=== PATIENT | male | born 1935 | race Caucasian/White ===

== ENCOUNTER 2022-01-23 13:24 | Inpatient (IN) | payer MEDICAID, OTHER ==
[~2022-01-23] VITALS: Ht 193 cm; Wt 63.1 kg
[2022-01-23] MEDS ORDERED: SODIUM CHLORIDE 0.9% 1,000 ML IV ONE (14:30)
[2022-01-23 14:40] LABS: BASOPHILS % 0.3 % (0.0-2.0); EOSINOPHILS % 0.6 % (0.0-5.0); HEMATOCRIT. 36.3 % (42.0-52.0); LYMPHOCYTES % 14.1 % (20.0-50.0); MEAN CORPUSCULAR HEMOGLOBIN 28.2 pg (28.0-32.0); MEAN CORPUSCULAR VOLUME 84.8 fL (80.0-94.0); MEAN PLATELET VOLUME 8.2 fl (7.4-10.4); PLATELET 143 x1000/uL (130-400); RED BLOOD CELL COUNT 4.27 mill/uL (4.7-6.1); RED CELL DISTRIBUTION WIDTH 16.7 % (11.6-14.6)
[2022-01-23 14:59] LABS: CHLORIDE 103 mEq/L (98-107)
[2022-01-23] MEDS ORDERED: CLONIDINE 0.2MG TABLET PO ONE (15:45)
[2022-01-23] MEDS ORDERED: NITROGLYCERIN 50MG PREMIX 250 ML IV ONE (17:00)
[2022-01-23] MEDS ORDERED: ENOXAPARIN 40MG/0.4ML SYR SUBCUT SCH (17:30)
[2022-01-23] MEDS ORDERED: ACETAMINOPHEN 325MG TABLET PO PRN ×2 (17:30)
[2022-01-23] MEDS ORDERED: GUAIFENESIN 200MG/10ML SUGAR FREE UDC PO PRN (17:30)
[2022-01-23] MEDS ORDERED: MAGNESIUM/ALUMINUM HYDROXIDE/SIMETHICONE 30ML UDC PO PRN (17:30)
[2022-01-23] MEDS ORDERED: HYDROCODONE/ACETAMINOPHEN 5/325MG TABLET PO PRN (17:30)
[2022-01-23] MEDS ORDERED: ONDANSETRON HCL 4MG/2ML INJ IV PRN (17:30)
[2022-01-23] MEDS ORDERED: NITROGLYCERIN 50MG PREMIX 250 ML IV PRN (17:45)
[2022-01-23] MEDS ORDERED: NALOXONE HCL 0.4MG/ML VIAL IV PRN (18:00)
[2022-01-23] MEDS: ENOXAPARIN 30MG/0.3ML SYR SUBCUT SCH (21:19)
[2022-01-24] VITALS (47 sets, daily range): BP systolic 89–202; BP diastolic 29–136
[2022-01-24] MEDS: CLONIDINE 0.1MG TABLET PO PRN ×2 (03:05→17:09)
[2022-01-24] MEDS: NITROGLYCERIN 50MG PREMIX 250 ML IV PRN ×2 (04:31→17:22)
[2022-01-24] MEDS: HYDRALAZINE 20MG/ML VIAL IV PRN ×2 (04:55→17:09)
[2022-01-24 06:22] LABS: BASOPHILS % 0.3 % (0.0-2.0); EOSINOPHILS % 0.5 % (0.0-5.0); HEMATOCRIT. 29.9 % (42.0-52.0); HEMOGLOBIN. 10.1 g/dL (14.0-18.0); LYMPHOCYTES % 13.8 % (20.0-50.0); MEAN CORPUSCULAR HEMOGLOBIN 28.9 pg (28.0-32.0); MEAN CORPUSCULAR VOLUME 85.2 fL (80.0-94.0); MEAN PLATELET VOLUME 9.1 fl (7.4-10.4); MONOCYTES % 10.3 % (2.0-8.0); NEUTROPHILS % 75.1 % (40.0-76.0); PLATELET 137 x1000/uL (130-400); RED BLOOD CELL COUNT 3.51 mill/uL (4.7-6.1); RED CELL DISTRIBUTION WIDTH 16.5 % (11.6-14.6)
[2022-01-24 18:05] LABS: HEPATITIS B SURFACE ANTIGEN NEGATIVE
[2022-01-24] MEDS ORDERED: ATOR-2 MT (18:29)
[2022-01-24] MEDS ORDERED: ATEN-42 MT (18:29)
[2022-01-24] MEDS ORDERED: AMLO10TA80 MT (18:29)
[2022-01-24] MEDS ORDERED: AMLODIPINE 10MG TABLET PO SCH (18:45)
[2022-01-24 19:15] LABS: PHOSPHORUS 2.5 mg/dL (2.5-4.9)
[2022-01-24] MEDS ORDERED: ATENOLOL 25MG TABLET PO SCH (21:00)
[2022-01-24] MEDS ORDERED: ATORVASTATIN CALCIUM 40MG TABLET PO SCH (21:00)
[2022-01-24] MEDS: ENOXAPARIN 30MG/0.3ML SYR SUBCUT SCH (21:05)
[2022-01-25] VITALS: BP 137/56
[2022-01-25 00:30] VITALS: BP 124/56
[2022-01-25 01:00] VITALS: BP 141/81
[2022-01-25 02:00] VITALS: BP 128/64
[2022-01-25 03:00] VITALS: BP 137/67
[2022-01-25 03:01] VITALS: BP 128/64
== END 2022-01-25 03:22 | disposition short-term general hospital (02) | DRG 70 ==
LOC: ER 14:19 → MICUSO 16:53 → EDBEDREQSVC 16:57 → EDBEDREQ 16:57 → EDBEDREQTM 16:57 → SUPCPDRO 17:17 → MICUSO 01-24 03:10
PROVIDERS: ADMIT Internal Medicine; ATTEND Internal Medicine
PROC: 5A1D70Z Performance of Urinary Filtration, Intermittent, Less than 6 Hours Per Day (ICD-10-PCS; principal; 2022-01-25)
DX: G93.41 Metabolic encephalopathy (principal); N18.6 End stage renal disease; I16.1 Hypertensive emergency; I67.82 Cerebral ischemia; I12.0 Hypertensive chronic kidney disease with stage 5 chronic kidney disease or end stage renal disease; D64.9 Anemia, unspecified; E78.5 Hyperlipidemia, unspecified; Z20.822 Contact with and (suspected) exposure to COVID-19; F03.90 Unspecified dementia, unspecified severity, without behavioral disturbance, psychotic disturbance, mood disturbance, and anxiety; F10.20 Alcohol dependence, uncomplicated; Z99.2 Dependence on renal dialysis; Z88.8 Allergy status to other drugs, medicaments and biological substances; R00.1 Bradycardia, unspecified
CPT/HCPCS: 36415; 71045; 80048; 80053; 80320; 83735; 83880; 84100; 84484; 85025; 86705; 86709; 86803; 87340; 87426; 93005; 99291; J0360; J1650; J3490; J7030; G0480

== ENCOUNTER 2022-10-17 12:14 | Inpatient (IN) | payer OTHER ==
[~2022-10-17] VITALS: Ht 193 cm; Wt 61.7 kg
[~2022-10-17 12:14] MED LIST: AMLO10TA80 MT; ATEN-42 MT; ATOR-2 MT
[2022-10-17] MEDS ORDERED: IOHEXOL-350 100 ML BOTTLE ONE (12:45)
[2022-10-17] MEDS ORDERED: LABETALOL 5MG/ML SYR 20 MG/4 ML SYRINGE IV ONE (13:00)
[2022-10-17 13:36] LABS: BASOPHILS % 0.5 % (0.0-2.0); EOSINOPHILS % 0.4 % (0.0-5.0); HEMOGLOBIN. 11.4 g/dL (14.0-18.0); LYMPHOCYTES % 21.2 % (20.0-50.0); MEAN CORPUSCULAR HEMOGLOBIN 28.3 pg (28.0-32.0); MEAN CORPUSCULAR VOLUME 86.7 fL (80.0-94.0); MEAN PLATELET VOLUME 9.2 fl (7.4-10.4); MONOCYTES % 12.9 % (2.0-8.0); PLATELET 155 x1000/uL (130-400); RED BLOOD CELL COUNT 4.04 mill/uL (4.7-6.1); RED CELL DISTRIBUTION WIDTH 16.1 % (11.6-14.6)
[2022-10-17 13:46] LABS: INR 1.1; PROTHROMBIN TIME 11.6 sec (9.6-11.0)
[2022-10-17 13:53] LABS: CHLORIDE 106 mEq/L (98-107)
[2022-10-17] MEDS ORDERED: ASPIRIN 300MG SUPP PR ONE (14:15)
[2022-10-17 14:19] LABS: ETHANOL BLOOD < 10 mg/dL
[2022-10-17] MEDS ORDERED: CALCIUM CHLORIDE 1GM/10ML SYR IV ONE (14:30)
[2022-10-17] MEDS ORDERED: CLOPIDOGREL 75MG TABLET PO ONE (14:45)
[2022-10-17] MEDS ORDERED: ONDANSETRON HCL 4MG/2ML INJ IV PRN (19:15)
[2022-10-17] MEDS ORDERED: DOCUSATE SODIUM 100MG CAPSULE PO PRN (19:15)
[2022-10-17] MEDS ORDERED: HYDROCODONE/ACETAMINOPHEN 5/325MG TABLET PO PRN (19:15)
[2022-10-17] MEDS ORDERED: MAGNESIUM/ALUMINUM HYDROXIDE/SIMETHICONE 30ML UDC PO PRN (19:15)
[2022-10-17] MEDS ORDERED: GUAIFENESIN 200MG/10ML SUGAR FREE UDC PO PRN (19:15)
[2022-10-17] MEDS ORDERED: IPRATROPIUM/ALBUTEROL 0.5-3(2.5)MG/3ML NEB NEB PRN (19:15)
[2022-10-17] MEDS ORDERED: ACETAMINOPHEN 325MG TABLET PO PRN ×2 (19:15)
[2022-10-17] MEDS ORDERED: IPRATROPIUM BROMIDE (0.02%) 0.5MG/2.5ML NEB HHN PRN (19:30)
[2022-10-17] MEDS ORDERED: ALBUTEROL (0.083%) 2.5MG/3ML NEB HHN PRN (19:30)
[2022-10-17 20:36] LABS: HEPATITIS B SURFACE ANTIGEN NEGATIVE
[2022-10-17] MEDS: ENOXAPARIN 30MG/0.3ML SYR SUBCUT SCH (21:11)
[2022-10-18] VITALS (17 sets, daily range): BP systolic 137–199; BP diastolic 52–92
[2022-10-18] MEDS: CLONIDINE 0.1MG TABLET PO PRN ×3 (00:53→16:20)
[2022-10-18 17:08] LABS: BASOPHILS % 0.8 % (0.0-2.0); EOSINOPHILS % 1.2 % (0.0-5.0); HEMOGLOBIN. 13.3 g/dL (14.0-18.0); LYMPHOCYTES % 24.6 % (20.0-50.0); MEAN CORPUSCULAR HEMOGLOBIN 28.7 pg (28.0-32.0); MEAN CORPUSCULAR VOLUME 88.4 fL (80.0-94.0); MEAN PLATELET VOLUME 8.1 fl (7.4-10.4); MONOCYTES % 13.6 % (2.0-8.0); NEUTROPHILS % 59.8 % (40.0-76.0); PLATELET 138 x1000/uL (130-400); RED BLOOD CELL COUNT 4.64 mill/uL (4.7-6.1); RED CELL DISTRIBUTION WIDTH 16.4 % (11.6-14.6)
[2022-10-18 17:44] LABS: T4 FREE 1.08 ng/dL (0.76-1.46)
[2022-10-18 18:02] LABS: VITAMIN B12 SERUM 455 pg/mL (211-911)
[2022-10-18] MEDS ORDERED: NALOXONE HCL 0.4MG/ML VIAL IV PRN (19:00)
[2022-10-18] MEDS: ATENOLOL 25MG TABLET PO SCH (21:00)
[2022-10-18] MEDS: ENOXAPARIN 30MG/0.3ML SYR SUBCUT SCH (21:24)
[2022-10-18] MEDS: ATORVASTATIN CALCIUM 40MG TABLET PO SCH (21:24)
[2022-10-19] VITALS (11 sets, daily range): BP systolic 127–186; BP diastolic 57–99
[2022-10-19 06:51] LABS: BASOPHILS % 0.8 % (0.0-2.0); EOSINOPHILS % 1.2 % (0.0-5.0); HEMATOCRIT. 35.8 % (42.0-52.0); HEMOGLOBIN. 11.8 g/dL (14.0-18.0); LYMPHOCYTES % 29.3 % (20.0-50.0); MEAN CORPUSCULAR HEMOGLOBIN 28.4 pg (28.0-32.0); MEAN CORPUSCULAR VOLUME 86.3 fL (80.0-94.0); MEAN PLATELET VOLUME 8.4 fl (7.4-10.4); NEUTROPHILS % 56.7 % (40.0-76.0); PLATELET 158 x1000/uL (130-400); RED BLOOD CELL COUNT 4.14 mill/uL (4.7-6.1); RED CELL DISTRIBUTION WIDTH 15.9 % (11.6-14.6)
[2022-10-19 08:07] LABS: PHOSPHORUS 2.9 mg/dL (2.5-4.9)
[2022-10-19] MEDS: AMLODIPINE 10MG TABLET PO SCH (08:10)
[2022-10-19] MEDS: ATENOLOL 25MG TABLET PO SCH (20:41)
[2022-10-19] MEDS: ENOXAPARIN 30MG/0.3ML SYR SUBCUT SCH (20:41)
[2022-10-19] MEDS: ATORVASTATIN CALCIUM 40MG TABLET PO SCH (20:41)
[2022-10-20] VITALS (26 sets, daily range): BP systolic 101–189; BP diastolic 53–124
[2022-10-20] MEDS: CLONIDINE 0.1MG TABLET PO PRN (00:59)
[2022-10-20] MEDS: AMLODIPINE 10MG TABLET PO SCH (12:20)
[2022-10-20] MEDS: ATORVASTATIN CALCIUM 40MG TABLET PO SCH (21:36)
[2022-10-20] MEDS: ENOXAPARIN 30MG/0.3ML SYR SUBCUT SCH (21:37)
[2022-10-20] MEDS: ATENOLOL 25MG TABLET PO SCH (21:38)
[2022-10-21] VITALS (22 sets, daily range): BP systolic 97–217; BP diastolic 52–109
[2022-10-21] MEDS: CLONIDINE 0.1MG TABLET PO PRN ×2 (00:14→03:53)
[2022-10-21 07:13] LABS: HEMATOCRIT. 36.5 % (42.0-52.0); HEMOGLOBIN. 12.1 g/dL (14.0-18.0); MEAN CORPUSCULAR HEMOGLOBIN 28.4 pg (28.0-32.0); MEAN CORPUSCULAR VOLUME 85.6 fL (80.0-94.0); MEAN PLATELET VOLUME 8.3 fl (7.4-10.4); PLATELET 151 x1000/uL (130-400); RED BLOOD CELL COUNT 4.27 mill/uL (4.7-6.1); RED CELL DISTRIBUTION WIDTH 15.9 % (11.6-14.6)
[2022-10-21] MEDS: CLOPIDOGREL 75MG TABLET PO SCH (09:02)
[2022-10-21] MEDS: AMLODIPINE 10MG TABLET PO SCH (09:02)
[2022-10-21] MEDS ORDERED: CLOP75TA15 PO (16:06)
[2022-10-21 16:10] LABS: HEPATITIS B SURFACE ANTIGEN NEGATIVE
[2022-10-21 17:08] LABS: PLATELET ESTIMATE NORMAL
[2022-10-21] MEDS: ATENOLOL 25MG TABLET PO SCH (22:55)
[2022-10-21] MEDS: ATORVASTATIN CALCIUM 40MG TABLET PO SCH (22:57)
[2022-10-21] MEDS: ENOXAPARIN 30MG/0.3ML SYR SUBCUT SCH (23:01)
[2022-10-22] VITALS (12 sets, daily range): BP systolic 115–209; BP diastolic 63–94
[2022-10-22] MEDS: CLOPIDOGREL 75MG TABLET PO SCH (08:20)
[2022-10-22] MEDS: AMLODIPINE 10MG TABLET PO SCH (08:20)
[2022-10-22] MEDS: CLONIDINE 0.1MG TABLET PO PRN ×2 (10:21→16:26)
[2022-10-22] MEDS: ATORVASTATIN CALCIUM 40MG TABLET PO SCH (20:58)
[2022-10-22] MEDS: ENOXAPARIN 30MG/0.3ML SYR SUBCUT SCH (20:58)
[2022-10-22] MEDS: ATENOLOL 25MG TABLET PO SCH (20:59)
[2022-10-23] VITALS (16 sets, daily range): BP systolic 119–188; BP diastolic 57–99
[2022-10-23] MEDS: CLOPIDOGREL 75MG TABLET PO SCH (09:07)
[2022-10-23] MEDS: AMLODIPINE 10MG TABLET PO SCH (09:07)
[2022-10-23] MEDS: ENOXAPARIN 30MG/0.3ML SYR SUBCUT SCH (20:30)
[2022-10-23] MEDS: ATORVASTATIN CALCIUM 40MG TABLET PO SCH (20:31)
[2022-10-23] MEDS: HYDRALAZINE HCL 50MG TABLET PO SCH (20:32)
[2022-10-23] MEDS: ATENOLOL 25MG TABLET PO SCH (20:32)
[2022-10-24] VITALS: BP 202/85
[2022-10-24 04:00] VITALS: BP 177/80
[2022-10-24 08:01] VITALS: BP 170/88
[2022-10-24] MEDS: CLOPIDOGREL 75MG TABLET PO SCH (08:46)
[2022-10-24] MEDS: AMLODIPINE 10MG TABLET PO SCH (08:46)
[2022-10-24] MEDS: HYDRALAZINE HCL 50MG TABLET PO SCH (08:46)
[2022-10-24 12:00] VITALS: BP 165/77
[2022-10-24] MEDS: HYDRALAZINE HCL 25MG TABLET PO SCH ×2 (13:23→22:40)
[2022-10-24 16:00] VITALS: BP 180/57
[2022-10-24 20:00] VITALS: BP 144/72
[2022-10-24 22:04] LABS: HEPATITIS B SURFACE ANTIGEN NEGATIVE
[2022-10-24] MEDS: ENOXAPARIN 30MG/0.3ML SYR SUBCUT SCH (22:40)
[2022-10-24] MEDS: ATORVASTATIN CALCIUM 40MG TABLET PO SCH (22:41)
[2022-10-24] MEDS: ATENOLOL 25MG TABLET PO SCH (22:41)
[2022-10-25] VITALS (12 sets, daily range): BP systolic 90–167; BP diastolic 51–90
[2022-10-25] MEDS: HYDRALAZINE HCL 25MG TABLET PO SCH ×2 (06:00→15:09)
[2022-10-25] MEDS: CLOPIDOGREL 75MG TABLET PO SCH (08:02)
[2022-10-25] MEDS: AMLODIPINE 10MG TABLET PO SCH (08:02)
[2022-10-25] MEDS ORDERED: LOPERAMIDE HCL 2MG CAPSULE PO NR (14:00)
[2022-10-25] MEDS ORDERED: LOPERAMIDE HCL 2MG CAPSULE PO PRN (14:00)
[2022-10-25] MEDS: ENOXAPARIN 30MG/0.3ML SYR SUBCUT SCH (20:00)
[2022-10-25] MEDS: ATORVASTATIN CALCIUM 40MG TABLET PO SCH (22:35)
[2022-10-25] MEDS: ATENOLOL 25MG TABLET PO SCH (22:36)
[2022-10-26] MEDS: AMLODIPINE 10MG TABLET PO SCH (09:00)
[2022-10-26] MEDS: CLOPIDOGREL 75MG TABLET PO SCH (09:57)
[2022-10-26] MEDS: HYDRALAZINE HCL 50MG TABLET PO SCH ×2 (10:02→17:00)
[2022-10-26 20:00] VITALS: BP 156/72
[2022-10-26] MEDS: ATORVASTATIN CALCIUM 40MG TABLET PO SCH (21:52)
[2022-10-26] MEDS: ATENOLOL 25MG TABLET PO SCH (22:01)
[2022-10-26] MEDS: ENOXAPARIN 30MG/0.3ML SYR SUBCUT SCH (22:01)
[2022-10-27] VITALS: BP 154/66
[2022-10-27 04:24] VITALS: BP 156/62
[2022-10-27 06:49] LABS: BASOPHILS % 0.4 % (0.0-2.0); EOSINOPHILS % 0.6 % (0.0-5.0); LYMPHOCYTES % 19.5 % (20.0-50.0); MEAN CORPUSCULAR HEMOGLOBIN 28.2 pg (28.0-32.0); MEAN CORPUSCULAR VOLUME 84.7 fL (80.0-94.0); MEAN PLATELET VOLUME 9.2 fl (7.4-10.4); MONOCYTES % 14.1 % (2.0-8.0); NEUTROPHILS % 65.4 % (40.0-76.0); PLATELET 176 x1000/uL (130-400); RED BLOOD CELL COUNT 4.25 mill/uL (4.7-6.1); RED CELL DISTRIBUTION WIDTH 16.1 % (11.6-14.6)
[2022-10-27 07:03] LABS: PHOSPHORUS 2.3 mg/dL (2.5-4.9)
[2022-10-27 08:00] VITALS: BP 167/56
[2022-10-27] MEDS: CLOPIDOGREL 75MG TABLET PO SCH (09:03)
[2022-10-27] MEDS: AMLODIPINE 10MG TABLET PO SCH (09:04)
[2022-10-27] MEDS: HYDRALAZINE HCL 50MG TABLET PO SCH ×2 (09:04→17:38)
[2022-10-27 12:00] VITALS: BP 146/65
[2022-10-27 16:00] VITALS: BP 155/72
[2022-10-27 20:00] VITALS: BP 133/67
[2022-10-27] MEDS: ATORVASTATIN CALCIUM 40MG TABLET PO SCH (21:21)
[2022-10-27] MEDS: ENOXAPARIN 30MG/0.3ML SYR SUBCUT SCH (21:22)
[2022-10-27] MEDS: ATENOLOL 25MG TABLET PO SCH (21:23)
[2022-10-28] VITALS (12 sets, daily range): BP systolic 115–173; BP diastolic 53–84
[2022-10-28] MEDS: HYDRALAZINE HCL 50MG TABLET PO SCH (09:36)
[2022-10-28] MEDS: AMLODIPINE 10MG TABLET PO SCH (09:37)
[2022-10-28] MEDS: CLOPIDOGREL 75MG TABLET PO SCH (09:37)
[2022-10-30 04:08] LABS: OVA & PARASITE EXAM Final report (.)
== END 2022-10-28 10:07 | disposition home health service (06) | DRG 64 ==
LOC: ER 12:27 → 5EST 19:43 → EDBEDREQ 19:46 → ENRESERV 10-18 03:43 → 5WST 10-25 19:55
PROVIDERS: ADMIT Internal Medicine; ATTEND Internal Medicine
PROC: 5A1D70Z Performance of Urinary Filtration, Intermittent, Less than 6 Hours Per Day (ICD-10-PCS; principal; 2022-10-18)
PROC: 5A1D70Z Performance of Urinary Filtration, Intermittent, Less than 6 Hours Per Day (ICD-10-PCS; 2022-10-19)
PROC: 5A1D70Z Performance of Urinary Filtration, Intermittent, Less than 6 Hours Per Day (ICD-10-PCS; 2022-10-20)
PROC: 5A1D70Z Performance of Urinary Filtration, Intermittent, Less than 6 Hours Per Day (ICD-10-PCS; 2022-10-21)
PROC: 4A00X4Z Measurement of Central Nervous Electrical Activity, External Approach (ICD-10-PCS; 2022-10-21)
PROC: 5A1D70Z Performance of Urinary Filtration, Intermittent, Less than 6 Hours Per Day (ICD-10-PCS; 2022-10-23)
PROC: 5A1D70Z Performance of Urinary Filtration, Intermittent, Less than 6 Hours Per Day (ICD-10-PCS; 2022-10-25)
PROC: 5A1D70Z Performance of Urinary Filtration, Intermittent, Less than 6 Hours Per Day (ICD-10-PCS; 2022-10-28)
DX: I63.9 Cerebral infarction, unspecified (principal); N18.6 End stage renal disease; I12.0 Hypertensive chronic kidney disease with stage 5 chronic kidney disease or end stage renal disease; G45.0 Vertebro-basilar artery syndrome; R47.1 Dysarthria and anarthria; F03.90 Unspecified dementia, unspecified severity, without behavioral disturbance, psychotic disturbance, mood disturbance, and anxiety; Z20.822 Contact with and (suspected) exposure to COVID-19; R29.701 NIHSS score 1; R26.9 Unspecified abnormalities of gait and mobility; E11.22 Type 2 diabetes mellitus with diabetic chronic kidney disease; E78.5 Hyperlipidemia, unspecified; I63.81 Other cerebral infarction due to occlusion or stenosis of small artery; J44.9 Chronic obstructive pulmonary disease, unspecified; Z79.82 Long term (current) use of aspirin; I25.2 Old myocardial infarction; Z86.73 Personal history of transient ischemic attack (TIA), and cerebral infarction without residual deficits; Z99.2 Dependence on renal dialysis; Z79.4 Long term (current) use of insulin
CPT/HCPCS: 36415; 70496; 70498; 70551; 71045; 80048; 80053; 80061; 80320; 82607; 82746; 82962; 83036; 83735; 83880; 84100; 84439; 84443; 84484; 85025; 86705; 86709; 86803; 87015; 87045; 87177; 87209; 87340; 87426; 87427; 87449; 90935; 92610; 93005; 93306; 95816; 97116; 97162; 97166; 97530; 97535; 99291; C9803; J1650; J3490; Q9967; G0480